=== PATIENT | female | born 1945 | race Caucasian/White ===

== ENCOUNTER 2016-07-14 10:20 | Day surgery (SDC) | payer OTHER, BC ==
[2016-07-09 13:03] VITALS: BMI 27.4
[2016-07-14] MEDS ORDERED: MIDAZOLAM HCL 2 MG/2 ML SINGLE DOSE VIAL ONE ×2 (12:16→12:47)
[2016-07-14] MEDS ORDERED: ROPIVACAINE HCL 0.5% 30ML VIAL ONE (12:16)
[2016-07-14] MEDS ORDERED: LIDOCAINE HCL 2% (20ML MULTI-DOSE VIAL) NR ONE (12:18)
[2016-07-14] MEDS ORDERED: ROCURONIUM BROMIDE 50 MG/5 ML VIAL ONE (12:47)
[2016-07-14] MEDS ORDERED: ceFAZolin SODIUM 1 GM VIAL ONE (12:54)
[2016-07-14] MEDS ORDERED: DEXAMETHASONE SOD PHOSPHATE 4 MG/1 ML VIAL ONE (12:55)
[2016-07-14] MEDS ORDERED: ONDANSETRON 4 MG/2 ML VIAL ONE (12:55)
[2016-07-14] MEDS ORDERED: ePHEDrine SULFATE 50 MG/1 ML AMPULE ONE (13:05)
[2016-07-14] MEDS ORDERED: GUM MASTIC/STORAX/MSAL/ALCOHOL 1 DRP DROPSBTL MC ONE (13:58)
[2016-07-14] MEDS ORDERED: oxyCODONE HCL 5 MG TABLET PO PRN ×2 (14:26)
[2016-07-14] MEDS ORDERED: ONDANSETRON 4 MG/2 ML VIAL IVPUSH PRN (14:26)
[2016-07-14] MEDS ORDERED: LACTATED RINGERS SOLUTION 1,000 ML IV SCH (14:30)
[2016-07-14 16:19] VITALS: TEMP 98.1
[2016-07-14 17:16] VITALS: BP 115/63; PULSE 80
--- NOTE | 2016-07-15 14:35 | OP ---
DATE OF OPERATION: 07/14/2016 OPERATIVE PROCEDURE: 1. Open reduction internal fixation or left comminuted intraarticular displaced distal radius fracture with internal fixation with 3 or more fragments. 2. Left brachioradialis tenotomy. 3. Right open reduction internal fixation of distal radius fracture. 4. Exploration of extensor tendons. PREOPERATIVE DIAGNOSIS: 1. Left comminuted displaced intraarticular distal radius fracture. 2. Right comminuted displaced distal radius fracture. 3. Possible left extensor pollicis longus rupture. POSTOPERATIVE DIAGNOSIS: 1. Left comminuted intraarticular displaced distal radius fracture. 2. Right displaced distal radius fracture. 3. Left extensor pollicis longus rupture. SURGEON: India Lin MD MIXER DIAMOND POWDER: JACE Billingsley ANESTHESIA: Regional. COMPLICATIONS: None. ESTIMATED BLOOD LOSS: Minimal. INDICATION FOR THE PROCEDURE: The patient is a 71-year-old female with the above findings indicated for operative treatment. The risks, benefits and alternatives were discussed with the patient at length. Informed consent was obtained for the procedure. PROCEDURE: After proper identification of the patient and the correct operative site, the patient was brought to the operating room and placed supine on the operating room table with all prominences well padded. Regional anesthesia was provided by the anesthesiologist, adequate for the procedure. Intravenous antibiotics were given. A time-out procedure was performed. The bilateral upper extremities were prepped and draped in the usual sterile fashion. The left upper extremity was addressed first and the right upper extremity was addressed second. An Esmarch bandage was used to exsanguinate the left upper extremity and a tourniquet was inflated to 250 mmHg. A volar incision was made over the distal radius. The incision was made sharply through the skin with blunt and sharp dissection of the subcutaneous tissues. First, the flexor carpi radialis tendon along with the contents of the carpal tower were bluntly retracted in an ulnar direction for the remainder of the procedure. The pronator quadratus was divided longitudinally and elevated off the distal radius. A highly comminuted fracture was noted. A brachial radialis tenotomy was necessary to mobilize the radial styloid fragments and this was done subperiosteally. Fragments were then mobilized and a volar distal radial locking plate by Corbin was placed on the volar aspect of the distal radius. It was secured proximally and then the dorsal fragments were reduced to the plate and fixed with distal locking screws. This provided secure, stable fixation of the fracture, confirmed both visually as well as radiographically. The scapholunate and distal radioulnar joints were stressed and there was no evidence of instability. Of note, prior to the procedure, by telephone and then immediately prior to the procedure, the patient complained of inability to extend the thumb and examination indicated possible EPL tendon rupture. The patient had inquired about this prior to the surgery and I explained to her that we could look at the time of surgery and see if it was ruptured. I therefore made a small incision dorsally over Paco tubercle with blunt dissection down to the extensor retinaculum. The retinaculum was divided in this area and the extensor pollicis longus tendon was found to be ruptured. As per my discussion with the patient prior to the surgery, if this were ruptured, we would return to surgery at another time to do a tendon transfer. This wound was then irrigated and repaired with 5-0 nylon suture. The volar incision was repaired in layers, including the pronator quadratus, with 4-0 Vicryl and 4-0 Monocryl suture. Steri-Strips, sterile dressing and a volar wrist splint were placed. The tourniquet was released and this arm was elevated. Attention was then turned to the right upper extremity. With the Esmarch bandage, we exsanguinated the extremity and a tourniquet was inflated to 250 mmHg. A longitudinal incision was made on the volar aspect of the wrist. The incision was taken sharply through the skin with blunt and sharp dissection through subcutaneous tissues. The flexor carpi radialis tendon along with the contents of the carpal tower were bluntly and gently retracted in an ulnar direction for the remainder of the procedure. The pronator quadratus was divided off of the distal radius and the fracture was identified. This was then reduced into a satisfactory position and held with an Acumed Acu-Loc 2 distal radius plate. This was placed with distal locking screws and proximal non-locking screws. This provided a complete, secure, stable fixation of the fracture with proper reduction, placement and size of all hardware confirmed radiographically. The scapholunate interval and distal radioulnar joints were stressed and no instability was present. The wound was irrigated with saline and repaired in layers with 4-0 Vicryl and 4-0 Monocryl suture. Steri-Strips, sterile dressings and a volar wrist splint were placed. The patient was reversed from anesthesia and brought to the recovery room in stable condition. She tolerated the procedure well. Juan Diego Lerma, the dental assistant medical assistant, was integral throughout this procedure and this procedure could not be performed without a skilled operative dental assistant medical assistant. INDIA LIN M.D. [id number]
== END 2016-07-14 17:00 | disposition home or self-care (01) ==
LOC: FASU 10:20
PROVIDERS: ATTEND Orthopaedic Surgery Hand Surgery
PROC: 0PS904Z Reposition Right Clavicle with Internal Fixation Device, Open Approach (ICD-10-PCS; 2016-07-14)
PROC: 0LC60ZZ Extirpation of Matter from Left Lower Arm and Wrist Tendon, Open Approach (ICD-10-PCS; 2016-07-14)
PROC: 0LN80ZZ Release Left Hand Tendon, Open Approach (ICD-10-PCS; 2016-07-14)
PROC: 0PSB04Z Reposition Left Clavicle with Internal Fixation Device, Open Approach (ICD-10-PCS; principal; 2016-07-14 13:05)
DX: S52.531A Colles' fracture of right radius, initial encounter for closed fracture (principal); S52.572A Other intraarticular fracture of lower end of left radius, initial encounter for closed fracture; S66.212A Strain of extensor muscle, fascia and tendon of left thumb at wrist and hand level, initial encounter; X58.XXXA Exposure to other specified factors, initial encounter; Y93.9 Activity, unspecified; Y92.9 Unspecified place or not applicable
CPT/HCPCS: 25290; 25609; 26055; L8699; 73110-TC-LT; 73110-TC-RT; 94760

== ENCOUNTER 2017-03-09 08:04 | Day surgery (SDC) | payer OTHER, BC ==
[2017-03-02 12:27] VITALS: BMI 27.9
[2017-03-09] MEDS ORDERED: SODIUM BICARBONATE 8.4% 50 MEQ/50 ML VIAL ONE (09:01)
[2017-03-09] MEDS ORDERED: LIDOCAINE 1%/EPI 1:100000 (20 ML MULTI DOSE VIAL) ONE (09:01)
[2017-03-09] MEDS ORDERED: MIDAZOLAM HCL 2 MG/2 ML SINGLE DOSE VIAL ONE (09:31)
[2017-03-09 12:29] VITALS: TEMP 97.8
[2017-03-09 12:33] VITALS: BP 136/66; PULSE 66
[2017-03-09] MEDS ORDERED: ONDANSETRON 4 MG/2 ML VIAL IVPUSH PRN (14:38)
[2017-03-09] MEDS ORDERED: oxyCODONE HCL 5 MG TABLET PO PRN ×2 (14:38)
[2017-03-09] MEDS ORDERED: LACTATED RINGERS SOLUTION 1,000 ML IV SCH (14:45)
--- NOTE | 2017-03-10 10:24 | OP ---
DATE OF OPERATION: 03/09/2017 PREOPERATIVE DIAGNOSIS: Left thumb extensor pollicis longus rupture. POSTOPERATIVE DIAGNOSIS: Left thumb extensor pollicis longus rupture. OPERATIVE PROCEDURE: Left extensor indicis proprius to extensor pollicis longus tendon transfer. SURGEON: India Lin MD DEMOLITION WORKER: JACE Billingsley ANESTHESIA: Local with sedation. COMPLICATIONS: None. ESTIMATED BLOOD LOSS: Minimal. INDICATIONS FOR PROCEDURE: The patient is a 72-year-old female who is status post left extensor pollicis longus rupture after a distal radius fracture. She was indicated for operative treatment. The risks, benefits, and alternatives were discussed with the patient at length, and proper informed consent was obtained. PROCEDURE: After proper identification of the patient and the correct operative site in the holding area, the patient was given local anesthetic using 1% lidocaine with epinephrine. Once this had set, and hemostasis had taken effect. The patient was brought to the operating room, and she was given light sedation throughout the procedure. Left upper extremity was prepped and draped in the usual sterile fashion. Tourniquet was placed, but not inflated during the procedure. A longitudinal incision was made at the dorsal aspect of the distal index metacarpal. Blunt dissection was performed through the subcutaneous tissues. The patient was found to have a sizable extensor indicis proprius and extensor digitorum communis in index finger. Therefore, this was designated an appropriate harvest site for the tendon transfer. A second incision was now made over the dorsum of the wrist, and blunt and sharp dissection was performed through subcutaneous tissues. The extensor indicis proprius was found in this area. A third incision was made over the dorsal aspect of the thumb metacarpal. Incision was taken sharply through the skin with blunt and sharp dissection through the subcutaneous tissues where the extensor pollicis longus tendon was found. The tendon was then brought into the wound from its rupture site and left attached distally. The tendon was pulled, and nearly full extension of the IP joint was achieved. The extensor indicis proprius was then divided at its distal aspect, and the tendon was brought out just distal to the extensor retinaculum in the wrist. It was then tunneled through a subcutaneous tunnel from the wrist to the dorsal aspect of the thumb, where a Pulvertaft weave was performed to the distal stump of the extensor pollicis longus under appropriate tensioning. The patient was awakened from her sedation and asked to flex and extend her thumb. She was able to fully extend the IP joint, and she was able to oppose her thumb to her small finger. There was no significant tension on the repair with these maneuvers. The Pulvertaft weave was then reinforced with multiple 3-0 nonabsorbable sutures. The wounds were then irrigated with saline and repaired in layers using 4-0 Vicryl and 4-0 nylon sutures. Sterile dressings and a splint were placed. Patient was brought to the recovery room in stable condition. She tolerated the procedure well. Juan Diego Lerma, the assistant grocery store manager, was integral throughout this procedure. The procedure could not have been performed without a skilled operative assistant grocery store manager. INDIA LIN M.D. [id number]
== END 2017-03-09 12:20 | disposition home or self-care (01) ==
LOC: FASU 08:04
PROVIDERS: ATTEND Orthopaedic Surgery Hand Surgery
PROC: 0LX60ZZ Transfer Left Lower Arm and Wrist Tendon, Open Approach (ICD-10-PCS; principal; 2017-03-09 09:40)
DX: M66.242 Spontaneous rupture of extensor tendons, left hand (principal)